=== PATIENT | female | born 1960 | race Caucasian/White ===

== ENCOUNTER 2017-01-31 07:07 | Day surgery (SDC) | payer OTHER ==
[~2017-01-31] VITALS: Ht 152.4 cm; Wt 60.7 kg
[~2017-01-31 07:07] MED LIST: CHOL500014 PO; MAGN400C PO; MULT-26 PO; OMEG500C3 PO; TEST5POW3 IM; UBID300C PO
[2017-01-31] MEDS ORDERED: PROG100C4 PO (07:33)
[2017-01-31 08:57] VITALS: BP 110/73
[2017-01-31] MEDS ORDERED: ONDANSETRON 2MG/ML, 2ML ONE ×2 (09:40→11:06)
[2017-01-31] MEDS ORDERED: HYDROmorphone 1 MG/ML, 1ML ONE ×2 (09:40→09:49)
[2017-01-31] MEDS: HYDROmorphone 1 MG/ML, 1ML IVPush PRN (09:54)
[2017-01-31] MEDS ORDERED: ONDANSETRON 2MG/ML, 2ML IVPush ONE (10:00)
[2017-01-31] MEDS ORDERED: FENTANYL PF 250 MCG/5ML ONE (10:50)
[2017-01-31] MEDS ORDERED: MIDAZOLAM 1 MG/ML, 2ML ONE (10:50)
[2017-01-31] MEDS ORDERED: BUPIVACAINE/PF-EPI 0.25% 1:200K ONE (10:50)
[2017-01-31] MEDS ORDERED: KETOROLAC 30 MG/1 ML ONE (11:06)
[2017-01-31] MEDS ORDERED: CEFAZOLIN 1,000 MG ONE (11:06)
[2017-01-31] MEDS ORDERED: EPHEDRINE 50 MG/ML, 1ML ONE (11:06)
[2017-01-31] MEDS ORDERED: DEXAMETHASONE 4 MG/ML, 1ML ONE (11:06)
[2017-01-31] MEDS ORDERED: PROPOFOL 10 MG/ML, 20ML ONE (11:06)
[2017-01-31] MEDS ORDERED: ACETAMINOPHEN 325 MG TABLET PO PRN (11:30)
[2017-01-31] MEDS ORDERED: MIDAZOLAM 1 MG/ML, 2ML IV PRN (11:30)
[2017-01-31] MEDS ORDERED: OXYcodone 5 MG/5 ML ORAL.SOL UDC PO PRN (11:30)
[2017-01-31] MEDS ORDERED: FENTANYL PF 100 MCG/2ML IV PRN (11:30)
[2017-01-31] MEDS ORDERED: PROMETHAZINE 25 MG/ML, 1ML IV PRN (11:30)
[2017-01-31] MEDS ORDERED: METOCLOPRAMIDE 5 MG/ML, 2ML IV PRN (11:30)
[2017-01-31] MEDS ORDERED: HYDROmorphone 1 MG/ML, 1ML IV PRN (11:30)
[2017-01-31] MEDS ORDERED: ONDANSETRON 2MG/ML, 2ML IVPush PRN (11:30)
[2017-01-31] MEDS ORDERED: MEPERIDINE/PF 25MG/0.5ML IVPush PRN (11:30)
[2017-01-31] MEDS ORDERED: OXYC5TAB2 PO ×2 (15:02→15:05)
== END 2017-01-31 17:30 | disposition home or self-care (01) ==
LOC: ED 08:42 → UNDOADMIN 09:47 → EDIP 09:47 → SDC 09:47 → 4NOR 12:41 → EDIP 12:41 → SDC 17:30 → UNDODISIN 17:30
PROVIDERS: ATTEND Orthopaedic Surgery
DX: S52.572A Other intraarticular fracture of lower end of left radius, initial encounter for closed fracture (principal); G40.909 Epilepsy, unspecified, not intractable, without status epilepticus; Z90.710 Acquired absence of both cervix and uterus; V00.121A Fall from non-in-line roller-skates, initial encounter; Y93.9 Activity, unspecified; Y92.9 Unspecified place or not applicable; Y99.9 Unspecified external cause status
CPT/HCPCS: 25609; 73100; 73110; 76000; 96374; 96375; 99285; C1713; J0690; J1100; J1170; J1885; J2250; J2405; J2704; J3010